=== PATIENT | female | born 1980 | race Caucasian/White ===

== ENCOUNTER 2020-10-16 16:15 | Emergency (ER) | payer BC ==
[2020-10-16 17:02] LABS: BASOPHIL % 0.5 % (0.0-0.2); EOSINOPHIL # 0.1 10^3/uL (0.0-0.2); EOSINOPHIL % 1.4 % (0.0-5.0); LYMPHOCYTES # 1.34 10^3/uL1 (1.0-4.8); LYMPHOCYTES % 21.5 % (24.0-44.0); MONOCYTES # 0.4 10^3/uL (0.3-0.8); MONOCYTES % 6.8 % (5.0-12.0); NEUTROPHIL # 4.3 10^3/uL (1.8-7.7); NEUTROPHILS % 69.8 % (41.0-85.0); PLATELET COUNT 233 10^3/uL (150-400); RED CELL DISTRIBUTION WIDTH 12.6 % (11.5-14.5)
--- NOTE | 2020-10-16 17:07 | ER.PDOC ---
General Chief Complaint: Requesting Medical Care Stated Complaint: syncope Time seen by MD: 16:44 Source: patient Exam Limitations: no limitations History of Present Illness Timing/Prior Episodes: no prior history Symptoms Prior to Episode: blurred vision, confusion, lightheadedness Precipitating Factors: standing Loss of Consciousness: Brief (Seconds) Location of Injury: None Current Symptoms: back to normal Prior symptoms/Treatment: Similar symptoms previous Reviewed Nursing Reviewed: Vital Signs, Abn. Noted Review of Systems All Other Systems: Reviewed and Negative Physical Exam General Appearance: No Apparent Distress, WD/WN HEENT: PERRL/EOMI, Normal ENT Inspection, TMs Normal, Pharynx Normal Neck: Non-Tender, Full Range of Motion, Supple, Normal Inspection Cardiovascular/Respiratory: Regular Rate, Rhythm, No M/R/G, Normal Peripheral Pulses, No JVD, Normal Breath Sounds, No Respiratory Distress Gastrointestinal: Normal Bowel Sounds, No Organomegaly, No Pulsatile Mass, Non Tender, Soft Extremities: Normal Range of Motion, Non-Tender, Normal Inspection, No Pedal Edema, No Calf Tenderness, Normal Capillary Refill Psychiatric: Alert, Oriented x 3 Cranial Nerves: Normal Hearing, Normal Speech, PERRL Coordination/Gait: Normal Finger to Nose, Normal Gait, Negative Romberg's Sign Motor/Sensory: No Motor Deficit, No Sensory Deficit, No Pronator Drift, Negative Babinski's Sign Skin: Normal Color, Warm/Dry Lymphatic: No Adenopathy Results/Orders Results/Orders Orders - TESSA NEWMAN MD Cbc With Auto Diff (10/16/20 16:48) Comprehensive Metabolic Panel (10/16/20 16:48) Creatine Kinase (10/16/20 16:48) Creatine Kinase Mb (10/16/20 16:48) Troponin I (10/16/20 16:48) Probnp B-Type Marketing Mgr (10/16/20 16:48) Helicobacter Pylori (10/16/20 16:48) Ekg-Routine (10/16/20 16:48) Ct Head Wo Contrast (10/16/20 18:05) Laboratory Tests Test 10/16/20 16:57 White Blood Count 6.2 10^3/uL (4.5-11.0) Red Blood Count 4.27 10^6/uL (4.00-5.20) Hemoglobin 12.4 g/dL (12.0-15.0) Hematocrit 37.9 % (36.0-46.0) Mean Corpuscular Volume 88.8 fL (78-100) Mean Corpuscular Hemoglobin 29.0 pg (26-34) Mean Corpuscular Hemoglobin Concent 32.7 g/dL (33-36.5) L Red Cell Distribution Width 12.6 % (11.5-14.5) Platelet Count 233 10^3/uL (150-400) Mean Platelet Volume 9.9 fL (7.8-11.0) Neutrophils (%) (Auto) 69.8 % (41.0-85.0) Lymphocytes (%) (Auto) 21.5 % (24.0-44.0) L Monocytes (%) (Auto) 6.8 % (5.0-12.0) Neutrophils # (Auto) 4.3 10^3/uL (1.8-7.7) Lymphocytes # (Auto) 1.34 10^3/uL1 (1.0-4.8) Monocytes # (Auto) 0.4 10^3/uL (0.3-0.8) Absolute Immature Granulocyte (auto 0 10^3 u/L (0-2) Absolute Eosinophils (auto) 0.1 10^3/uL (0.0-0.2) Immature Granulocytes % 0.00 % (0.00-0.50) Eosinophils % 1.4 % (0.0-5.0) Basophils % 0.5 % (0.0-0.2) H Basophils # 0.0 10^3/uL (0.0-0.1) Sodium Level 141 mmol/L (132-145) Potassium Level 3.6 mmol/L (3.6-5.2) Chloride Level 105.0 mmol/L (96-109) Carbon Dioxide Level 28.6 mmol/L (20.0-32) Anion Gap 11.0 Blood Urea Nitrogen 11 mg/dL (7-18) Creatinine 0.67 mg/dL (0.59-1.40) Estimated GFR () 117.4 (>/=60) Est GFR (CKD-EPI)(Non-Afr Thai) 97.0 (>/=60) BUN/Creatinine Ratio 16.0 Glucose Level 95 mg/dL (70-110) Calcium Level 8.3 mg/dL (8.4-10.5) L Total Bilirubin 0.7 mg/dL (0.2-1.0) Aspartate Amino Transferase (AST) 12 U/L (0-35) Alanine Aminotransferase (ALT) 21 U/L (12-78) Alkaline Phosphatase 78 U/L (50-136) Total Creatine Kinase 70 U/L (26-192) Creatine Kinase MB < 0.5 ng/mL (0.5-3.6) L Troponin I < 0.02 ng/mL (0.00-0.05) Pro-B-Type Natriuretic Peptide 72 pg/mL (0-125) Total Protein 6.6 g/dL (6.4-8.2) Albumin 3.4 g/dL (3.4-5.0) Globulin 3.2 Albumin/Globulin Ratio 1.062 Helicobacter pylori Screen NEGATIVE (NEGATIVE) Progress Progress OBSERVATION OFFERED EKG/XRAY/CT/US EKG: NSR ER DEPART Departure Time of Disposition: 17:33 Disposition: 01 HOME / SELF CARE / HOMELESS Impression: Primary Impression: Syncope Condition: Improved Duration or Time Spent with Pa: 12M TESSA NEWMAN MD Oct 16, 2020 17:07
[2020-10-16 17:30] LABS: ALANINE AMINOTRANSFERASE(ML) 21 U/L (12-78); ALKALINE PHOSPHATASE 78 U/L (50-136); ASPARTATE AMINO TRANSFERASE 12 U/L (0-35); CALCIUM 8.3 mg/dL (8.4-10.5); CARBON DIOXIDE 28.6 mmol/L (20.0-32); GLUCOSE 95 mg/dL (70-110)
--- NOTE | 2020-10-16 17:34 | PCM.EKG ---
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
[2020-10-16 18:09] VITALS: BP 123/70
--- NOTE | 2020-10-16 18:24 | DIREP ---
PROCEDURE:CT HEAD OR BRAIN W/O CONTRAST COMPARISON:None. INDICATIONS:FALL TECHNIQUE:CT images were created without intravenous contrast. FINDINGS: VENTRICLES:The ventricles are normal in size and configuration. CEREBRUM:Normal cerebral morphology with appropriate dos santos white matter differentiation. CEREBELLUM:Negative. BRAINSTEM:Negative. BASAL CISTERNS:Negative. HEMORRHAGE:No MASS LESION:No ACUTE INFARCT:No SKULL:Normal. SINUSES:Normal. OTHER:None CONCLUSION:No acute intracranial process. Dictated by: Teofilo Lema M.D. on 10/16/2020 at 06:22 PM
[2020-10-16] MEDS ORDERED: NS 1000ML 1,000 ML IV ONE (19:00)
== END 2020-10-16 19:47 | disposition home or self-care (01) ==
LOC: ER 16:15
DX: R55 Syncope and collapse (principal)
CPT/HCPCS: 36415; 70450; 80053; 82550; 82553; 83880; 84484; 85025; 86677; 93005; 99285